=== PATIENT | female | born 1975 | race Caucasian/White ===

== ENCOUNTER 2023-11-21 14:37 | Emergency (ER) | payer BC, SELFPAY ==
[2023-11-21 14:46] VITALS: BP 131/95
[2023-11-21] MEDS: DELTASONE 40 MG PO (15:55)
--- NOTE | 2023-11-21 18:52 | ED.GENMED ---
History of Present Illness
General
Chief Complaint: Cough
Source: patient
Exam Limitations: none
Time Seen by Provider: 11/21/23 15:06
Nursing documentation reviewed up to this point in time: agreed with
History of Present Illness
History of Present Illness:
Patient to ED for eval of cough. State she was treated for bronchitis in October with a prednisone taper. Initially felt better but now is starting with cough again. SHe was seen by PCP and advised to get CXR. Denies fever/chills. No SOB.
Past History
Past History
ED Past Medical History: Asthma, HTN and Other (Kidney stones)
ED Past Surgical History: None
Social History
Tobacco: Non-smoker
Alcohol: None
Personal:
Living: with family
Review of Systems
Review of Systems
Allergies reviewed?: Yes
All Other Systems: ROS reviewed and negative except as documented in HPI and ROS
Constitutional: Reports no symptoms
EENT: Reports no symptoms
Respiratory: Reports cough
Cardiac: Reports no symptoms
ABD/GI: Reports no symptoms
: Reports no symptoms
Musculoskeletal: Reports no symptoms
Skin: Reports no symptoms
Neurological: Reports no symptoms
Psychiatric: Reports no symptoms
Phy Exam
General Physical Exam
General Presentation: well appearing and no apparent distress
General age: appears stated age
General Skin: warm and dry
General Habitus: normal
General Mental: alert
Cardiovascular Exam
Cardiovascular Exam: regular rate/rhythm and no edema
Pulmonary Exam
Pulmonary Exam: lungs clear, no respiratory distress (Pulse ox 99% RA), chest non tender and no wheezing
Cough: coarse cough
Musculoskeletal Exam
Musculoskeletal Exam: full ROM
Skin Exam
Skin Exam: normal color, warm/dry and no rash
Psychiatric Exam
Psychiatric Exam: normal mood/affect
Course
Orders/Labs/Results
Orders:
Orders
11/21/23 14:50
Chest [CR Chest - 2 Views ] Urgent
Comment:
Reason For Exam: cough
11/21/23 15:45
Prednisone [Deltasone] 40 mg PO NOW STA
Vital Signs
Initial and Last Documented VS:
Initial Vital Signs
Temp Pulse Resp BP Pulse Ox
98.5 F 93 16 131/95 97
11/21/23 14:46 11/21/23 14:46 11/21/23 14:46 11/21/23 14:46 11/21/23 14:46
Last Documented Vital Signs
Temp Pulse Resp BP Pulse Ox
98.5 F 93 16 131/95 97
11/21/23 14:46 11/21/23 14:46 11/21/23 14:46 11/21/23 14:46 11/21/23 14:46
*Radiology
Radiology exam reviewed: radiology read reviewed
*Pulse Oximetry
Patient hypoxic: no
*Critical Care Note
Total Time (30-74mins, 75-104mins- exclusive of procedures): Not Applicable
ED Attending Note
-
Portions of this chart may have been created with voice recognition software.� Occasional wrong word or��sound alike� substitutions may have occurred due to the inherent limitations of voice recognition software.
Discharge Plan
Departure
Patient Disposition: Home (Routine Discharge)
Date of Disposition: 11/21/23
Time of Disposition: 15:45
Patient with high blood pressure during this ER visit?: No
Condition: Good
Covid-19: Not Applicable
Discharge Problem:
Cough
Instructions: Cough, Adult (DC)
Prescriptions:
New
prednisone 10 mg Tablet
See Rx Instructions .ROUTE .COMPLEX Qty: 30 0RF
Rx Instructions:
Take By Mouth:
40 mg daily x3 days, 30 mg daily x3 days,
20 mg daily x3 days, 10 mg daily x3 days.
albuterol sulfate [Proventil HFA] 90 mcg/actuation HFA aerosol inhaler
2 puff inhalation Q4H PRN (Reason: shortness of breath or wheezing) Qty: 8.5 1RF
No Action
escitalopram oxalate 10 MG tablet
10 mg PO DAILY
oxycodone-acetaminophen 5 MG/325 MG tablet
1 tab PO Q4HPRN PRN (Reason: Pain) Qty: 10 0RF
ondansetron 4 MG tablet,disintegrating
4 mg PO Q8HPRN PRN (Reason: nausea/vomiting) Qty: 10 0RF
tamsulosin 0.4 MG capsule
0.4 mg PO DAILY Qty: 5 0RF
Referrals:
Hardeep Shelley DO [Family Provider] -
Interventions
Interventions:
*Nursing Disposition Last Done: 11/21/23 16:15
Discharge Date and Time
Discharge Date/Time: 11/21/23 16:15
Print Language: CZECH
== END 2023-11-21 16:15 | disposition home or self-care (01) ==
LOC: EMR 14:37
PROVIDERS: EMERGENCY PHYSICIAN Student in an Organized Health Care Education/Training Program; FAMILY PHYSICIAN Internal Medicine
DX: R05.9 Cough, unspecified (principal); I10 Essential (primary) hypertension; J45.909 Unspecified asthma, uncomplicated
CPT/HCPCS: 99283; 71046

== ENCOUNTER 2024-10-18 11:52 | Emergency (ER) | payer BC, SELFPAY ==
[2024-10-18 12:01] VITALS: BP 166/110
[2024-10-18 12:34] LABS: Hematocrit 38.0 % (37.0-47.0); Hemoglobin 11.8 g/dL (12.0-16.0); Mean Corp Hgb Conc. 31.1 g/dL (33.0-37.0); Mean Corpuscular Volume 79.3 fL (81.0-99.0); Nucleated Red Blood Cells % 0 %; Platelet Count 415 10^3/uL (130-400); Red Cell Dist. Width 15.2 % (11.5-14.5)
[2024-10-18 12:39] LABS: HCG, Serum Qualitative Screen Negative
[2024-10-18 12:42] LABS: ALT (SGPT) 14 U/L (0-35); AST (SGOT) 16 U/L (14-36); Albumin 4.8 g/dl (3.5-5.0); Alkaline Phosphatase 85 U/L (38-126); Blood Urea Nitrogen 12 mg/dl (7-17); Calcium 9.8 mg/dl (8.4-10.2); Carbon Dioxide 26 mmol/L (22-30); Chloride 106 mmol/L (98-107); Glucose 103 mg/dl (70-99); Potassium 4.1 mmol/L (3.5-5.1); Sodium 150 mmol/L (135-145); Total Protein 7.8 g/dl (6.3-8.2); eGFR > 60.00
[2024-10-18 12:58] LABS: Urine Character Clear (Clear)
[2024-10-18 13:22] LABS: Urine Red Blood Cell 26-30 /HPF (0-2); Urine Squamous Cell 0-2 /LPF (Few); Urine White Cell 0-2 /HPF (0-5)
[2024-10-18] MEDS: TORADOL 15 MG IV (13:30)
[2024-10-18] MEDS: NSS 1000 IV (13:31)
[2024-10-18] MEDS: DILAUDID 1 MG IV (14:03)
[2024-10-18] MEDS: ZOFRAN 4 MG IV ×2 (14:05→16:14)
[2024-10-18 15:31] VITALS: BP 122/80
--- NOTE | 2024-10-18 16:35 | ED.GENMED ---
History of Present Illness
<Babar Ambrocio DO - Last Filed: 10/18/24 16:36>
General
Chief Complaint: Urinary Symptoms
Source: patient
Time Seen by Provider: 10/18/24 13:02
History of Present Illness
History of Present Illness:
Note:
CHIEF COMPLAINT(S)
Left lower back pain radiating to the left flank and front.
HISTORY OF PRESENT ILLNESS
The patient is a 48-year-old female who presents with left lower back pain that radiates to the left flank and towards the front. The onset of the pain is unclear, but the patient reports it has been worsening over the past few weeks and became more
pronounced by Wednesday. She describes the pain as similar to that experienced with previous kidney stones. The patient has experienced intermittent nausea that is not severe enough to prevent oral intake. She came to the emergency department earlier
than usual because the pain became intolerable. The patient has a history of kidney stones and found relief with ketorolac (Toradol) previously.
PAST MEDICAL AND SURGICAL HISTORY
The patient has a history of diabetes and hypertension. There is no mention of previous surgeries.
ALLERGIES
The patient reports no known allergies to medications.
REVIEW OF SYSTEMS
- Gastrointestinal: Intermittent nausea without emesis.
- Renal/Urological: Pain described as similar to previous kidney stones.
PHYSICAL EXAM
General: The patient appears in moderate pain distress.
Skin: Warm, dry.
Head: Normocephalic, atraumatic.
Neck: Supple, trachea midline.
Eye Ears, Nose, Mouth, and Throat: Oral mucosa moist.
Cardiovascular: Heart rate regular without murmur.
Respiratory: Respirations are non-labored.
Gastrointestinal: Abdomen nondistended, no costovertebral angle tenderness.
Back: Normal range of motion, Normal alignment.
Musculoskeletal: Normal range of motion, normal strength.
Neurological: Alert and oriented to person, place, time, and situation. No focal neurological deficit observed.
Psychiatric: Cooperative, appropriate mood and affect.
PLAN
1. Administer ketorolac (Toradol) for pain management.
2. Administer intravenous fluids.
3. Obtain imaging to evaluate the underlying cause of pain, suspecting recurrence of kidney stones.
4. Monitor pain relief effectiveness and adjust medication as needed.
DIFFERENTIAL DIAGNOSIS
The Differential Diagnosis includes, in no particular order and is not limited to:
1. Nephrolithiasis (kidney stones)
2. Pyelonephritis
3. Musculoskeletal back pain
4. Urinary tract infection
5. Abdominal aortic aneurysm
6. Gastrointestinal pathology such as diverticulitis
7. Ovarian pathology
8. Herpes zoster
9. Renal infarction
10. Splenic issues
Disposition:
SUMMARY OF ENCOUNTER
The patient is a 48-year-old female who presented with left lower back pain radiating to the left flank and front, suggestive of nephrolithiasis. A CT scan confirmed the presence of an obstructing left vesico-ureteral calculus. The patients pain has
improved with treatment, but nausea continues. Labs revealed mild hypernatremia with a sodium level of 150 mEq/L, normal creatinine, normal liver function tests, and a white blood cell count within normal range. Urinalysis shows no signs of
infection.
DISPOSITION
Consideration for discharge for outpatient management.
ASSESSMENT
The patient presents with symptoms and imaging findings consistent with nephrolithiasis.
EMERGENCY TREATMENTS ADMINISTERED
Ketorolac was administered in the emergency department for pain management.
PLAN
1. Continue monitoring the patients condition with the intent of discharging her for outpatient management.
2. Advise on maintaining hydration and managing nausea as symptoms persist.
INDEPENDENT REVIEW OF LABS AND INTERPRETATION OF TESTS
- My independent review of chemistry shows mild hypernatremia at 150 mEq/L.
- My independent review of liver function tests indicates they are within normal range.
- My independent review of urinalysis shows no signs of infection.
- My independent review of the complete blood count indicates a normal white blood cell count.
MEDICAL DECISION MAKING
-Complexity of Data Reviewed:
Chronic conditions affecting care: Diabetes, Hypertension
Differential Diagnosis: Nephrolithiasis (kidney stones), Pyelonephritis, Musculoskeletal back pain, Urinary tract infection, Abdominal aortic aneurysm, Gastrointestinal pathology such as diverticulitis, Ovarian pathology, Herpes zoster, Renal
infarction, Splenic issues
-Data:
Category 1
- CT scan independently interpreted, showing obstructing left vesico-ureteral calculus.
-Risk:
Consideration of Admission/Observation: Escalation of care including admission/observation was considered given the complexity and risk of the patients presenting complaint, exam findings, and/or their underlying comorbidities. However, ultimately,
I feel the patient is safe for outpatient management with close follow-up. Reasoning: Work-up reassuring, does not reveal any acute life/organ-threatening processes, patients symptoms well controlled upon reevaluation, reexamination is reassuring,
vitals are stable, patient agreeable with discharge, reliable for follow-up.
DIAGNOSIS
1. Nephrolithiasis (Kidney Stones) - ICD-10: N20.2
2. Hypernatremia - ICD-10: E87.0
Past History
<Babar Ambrocio, DO - Last Filed: 10/18/24 16:36>
Past History
ED Past Medical History: Asthma, HTN and Other (Kidney stones)
ED Past Surgical History: None
Social History
Tobacco: Non-smoker
Alcohol: None
Personal:
Living: with family
Phy Exam
<Babar Ambrocio DO - Last Filed: 10/18/24 16:36>
Physical Exam
Physical Exam:
.
Course
<Babar Ambrocio, DO - Last Filed: 10/18/24 16:36>
Orders/Labs/Results
Orders:
Orders
10/18/24 12:03
Test Result ONCE
10/18/24 12:10
Complete Blood Count/With Diff Urgent
Comprehensive Metabolic Panel Urgent
HCG, Serum Qualitative Screen Urgent
Urinalysis Reflex To Culture Urgent
Date Specimen was Collected: 10/18/24
Time Specimen was Collected: 12:03
Urine Microscopic Reflex Cult Urgent
Urine Culture Urgent
KELSI Source: U
Specimen Description:
Date Specimen was Collected: 10/18/24
Time Specimen was Collected: 12:03
10/18/24 13:29
0.9% Sodium Chloride 1000 ml [Nss] 1,000 ml IV BOLUS
Ketorolac [Toradol] 15 mg IV NOW STA
10/18/24 13:30
CT Abd/pel Without Iv Or Oral Urgent
Comment:
Reason For Exam: L flank pain
10/18/24 13:53
HYDROmorphone [Dilaudid] 1 mg IV NOW STA
Ondansetron Injectable [Zofran] 4 mg IV NOW STA
10/18/24 15:36
Ondansetron Injectable [Zofran] 4 mg .ROUTE .STK-MED ONE
10/18/24 15:46
Electrocardiogram (*1) Urgent
Reason for Study: QTc Monitoring
EKG- Treatment ONCE
10/18/24 16:13
Ondansetron Injectable [Zofran] 4 mg IV NOW STA
10/18/24 18:23
Prochlorperazine [Compazine] 10 mg IV NOW STA
10/18/24 19:20
Prochlorperazine [Compazine] 10 mg PO NOW STA
Abnormal Lab Results
10/18/24
12:10
Hgb 11.8 L g/dL
(12.0-16.0)
MCV 79.3 L fL
(81.0-99.0)
MCH 24.6 L pg
(27.0-31.0)
MCHC 31.1 L g/dL
(33.0-37.0)
RDW 15.2 H %
(11.5-14.5)
Plt Count 415 H 10^3/uL
(130-400)
Absolute Monos (auto) 0.9 H 10^3/uL
(0.1-0.6)
Monocytes % 11.6 H %
(1.7-9.3)
Sodium 150 H mmol/L
(135-145)
Glucose 103 H mg/dl
(70-99)
Ur Occult Blood Reflex 4+ A
(Negative)
Leukocyte Esterase Rfl 1+ A
(Negative)
Urine RBC 26-30 A /HPF
(0-2)
Urine Bacteria (Reflex) Few A
(Negative)
Urine Albumin (Reflex) 2+ A
(Neg - Trace)
10/18/24 12:10
10/18/24 12:10
Vital Signs
Initial and Last Documented VS:
Initial Vital Signs
Temp Pulse Resp BP Pulse Ox
98.7 F 91 16 166/110 98
10/18/24 12:01 10/18/24 12:01 10/18/24 12:01 10/18/24 12:01 10/18/24 12:01
Last Documented Vital Signs
Temp Pulse Resp BP Pulse Ox
98.7 F 89 18 129/85 99
10/18/24 12:01 10/18/24 18:00 10/18/24 18:00 10/18/24 18:00 10/18/24 18:00
<Keegan Villalba MD - Last Filed: 10/18/24 22:27>
Orders/Labs/Results
Orders:
Orders
10/18/24 12:03
Test Result ONCE
10/18/24 12:10
Complete Blood Count/With Diff Urgent
Comprehensive Metabolic Panel Urgent
HCG, Serum Qualitative Screen Urgent
Urinalysis Reflex To Culture Urgent
Date Specimen was Collected: 10/18/24
Time Specimen was Collected: 12:03
Urine Microscopic Reflex Cult Urgent
Urine Culture Urgent
KELSI Source: U
Specimen Description:
Date Specimen was Collected: 10/18/24
Time Specimen was Collected: 12:03
10/18/24 13:29
0.9% Sodium Chloride 1000 ml [Nss] 1,000 ml IV BOLUS
Ketorolac [Toradol] 15 mg IV NOW STA
10/18/24 13:30
CT Abd/pel Without Iv Or Oral Urgent
Comment:
Reason For Exam: L flank pain
10/18/24 13:53
HYDROmorphone [Dilaudid] 1 mg IV NOW STA
Ondansetron Injectable [Zofran] 4 mg IV NOW STA
10/18/24 15:36
Ondansetron Injectable [Zofran] 4 mg .ROUTE .STK-MED ONE
10/18/24 15:46
Electrocardiogram (*1) Urgent
Reason for Study: QTc Monitoring
EKG- Treatment ONCE
10/18/24 16:13
Ondansetron Injectable [Zofran] 4 mg IV NOW STA
10/18/24 18:23
Prochlorperazine [Compazine] 10 mg IV NOW STA
10/18/24 19:20
Prochlorperazine [Compazine] 10 mg PO NOW STA
Abnormal Lab Results
10/18/24
12:10
Hgb 11.8 L g/dL
(12.0-16.0)
MCV 79.3 L fL
(81.0-99.0)
MCH 24.6 L pg
(27.0-31.0)
MCHC 31.1 L g/dL
(33.0-37.0)
RDW 15.2 H %
(11.5-14.5)
Plt Count 415 H 10^3/uL
(130-400)
Absolute Monos (auto) 0.9 H 10^3/uL
(0.1-0.6)
Monocytes % 11.6 H %
(1.7-9.3)
Sodium 150 H mmol/L
(135-145)
Glucose 103 H mg/dl
(70-99)
Ur Occult Blood Reflex 4+ A
(Negative)
Leukocyte Esterase Rfl 1+ A
(Negative)
Urine RBC 26-30 A /HPF
(0-2)
Urine Bacteria (Reflex) Few A
(Negative)
Urine Albumin (Reflex) 2+ A
(Neg - Trace)
10/18/24 12:10
10/18/24 12:10
Vital Signs
Initial and Last Documented VS:
Initial Vital Signs
Temp Pulse Resp BP Pulse Ox
98.7 F 91 16 166/110 98
10/18/24 12:01 10/18/24 12:01 10/18/24 12:01 10/18/24 12:01 10/18/24 12:01
Last Documented Vital Signs
Temp Pulse Resp BP Pulse Ox
98.7 F 89 18 129/85 99
10/18/24 12:01 10/18/24 18:00 10/18/24 18:00 10/18/24 18:00 10/18/24 18:00
<Babar Ambrocio DO - Last Filed: 10/18/24 16:36>
*Pulse Oximetry
SaO2: 96
Oxygen Mode of Delivery: Room air
Patient hypoxic: no
<Keegan Villalba MD - Last Filed: 10/18/24 22:27>
*Critical Care Note
Total Time (30-74mins, 75-104mins- exclusive of procedures): Not Applicable
<Keegan Villalba MD - Last Filed: 10/18/24 22:27>
Update Note
Update Note:
History, exam, and CT scan consistent with obstructing kidney stone. Patient reports resolution of pain after treatment, but reports significant nausea sensation after treatment, which may be secondary to narcotic administration. As such, patient
given additional antiemetic, i.e. Compazine, with significant improved symptoms. As such, patient will be discharged home with prescription for Compazine along with referral to urology for an outpatient consultation. Return precautions provided,
i.e. fever/worsening pain/vomiting/inability to urinate. Patient expresses understanding, at time of discharge.
ED Attending Note
<Babar Ambrocio DO - Last Filed: 10/18/24 16:36>
-
Portions of this chart may have been created with voice recognition software.� Occasional wrong word or��sound alike� substitutions may have occurred due to the inherent limitations of voice recognition software.
Discharge Plan
Departure
Patient Disposition: Home (Routine Discharge)
Date of Disposition: 10/18/24
Time of Disposition: 19:20
Patient with high blood pressure during this ER visit?: Yes
Condition: Fair
Discharge Problem:
Renal colic
Instructions: Kidney stones in adults
Prescriptions:
New
ketorolac 10 mg tablet
10 mg PO Q8H PRN (Reason: Pain) Qty: 14 0RF
Rx Instructions:
maximum total duration of 5 days from all oral, intranasal, or parenteral formulations
prochlorperazine maleate [Compazine] 10 mg tablet
10 mg PO Q8H PRN (Reason: nausea and vomiting) Qty: 14 0RF
No Action
escitalopram oxalate 10 MG tablet
10 mg PO DAILY
oxycodone-acetaminophen 5 MG/325 MG tablet
1 tab PO Q4HPRN PRN (Reason: Pain) Qty: 10 0RF
ondansetron 4 MG tablet,disintegrating
4 mg PO Q8HPRN PRN (Reason: nausea/vomiting) Qty: 10 0RF
tamsulosin 0.4 MG capsule
0.4 mg PO DAILY Qty: 5 0RF
prednisone 10 mg Tablet
See Rx Instructions .ROUTE .COMPLEX Qty: 30 0RF
Rx Instructions:
Take By Mouth:
40 mg daily x3 days, 30 mg daily x3 days,
20 mg daily x3 days, 10 mg daily x3 days.
albuterol sulfate [Proventil HFA] 90 mcg/actuation HFA aerosol inhaler
2 puff inhalation Q4H PRN (Reason: shortness of breath or wheezing) Qty: 8.5 1RF
Referrals:
Abdulaziz Shaffer MD [Active, Urology]
Haim Fleming MD [Family Provider]
Activity Restrictions/Additional Instructions:
As discussed, please follow-up with your primary care physician and/or referred urologist for further evaluation and treatment. Please consider return to ED with worsening symptoms, i.e. fever/worsening pain/vomiting/inability urinate. Your
prescriptions have been sent electronically to [facility] pharmacy in [place].
Interventions
Interventions:
*Risk Screen - Suicide Last Done: 10/18/24 12:01
*Neglect/Abuse Screening Last Done: 10/18/24 12:01
*ED COVID-19 Vaccine History Last Done: 10/18/24 13:11
*Nursing Disposition Last Done: 10/18/24 19:39
ED-Female Genitourinary Assessment Last Done: 10/18/24 13:11
Discharge Date and Time
Discharge Date/Time: 10/18/24 19:42
Print Language: SAMMARINESE
[2024-10-18 18:00] VITALS: BP 129/85
[2024-10-18] MEDS: COMPAZINE 10 MG IV (18:31)
[2024-10-18] MEDS: COMPAZINE 10 MG PO (19:39)
== END 2024-10-18 19:42 | disposition home or self-care (01) ==
LOC: EMR 11:52
PROVIDERS: EMERGENCY PHYSICIAN Emergency Medicine; FAMILY PHYSICIAN Internal Medicine
DX: N20.2 Calculus of kidney with calculus of ureter (principal); E11.9 Type 2 diabetes mellitus without complications; I10 Essential (primary) hypertension; E87.0 Hyperosmolality and hypernatremia
CPT/HCPCS: 96374; 96375; 96376; 96361; 99284; 74176; 80053; 81003; 81015; 84703; 85025; 87086; 93005